=== PATIENT | male | born 1935 | race Caucasian/White ===

== ENCOUNTER 2016-06-22 09:38 | Inpatient (IN) | payer MEDICARE, OTHER ==
[~2016-06-22] VITALS: Ht 167.6 cm; Wt 77.2 kg
--- NOTE | ~2016-06-22 | HP ---
PATIENT'S NAME: HALLIE LOMAS [facility] AGE: 80 Y [address] ROOM: [place] [address] LOCATION: [facility] ADMIT DATE: 06/22/2016 History & Physical DISCHARGE DATE: FAMILY PHYSICIAN: Nick Fontenot MD ATTENDING PHYSICIAN: Teddy Leggett DATE OF SERVICE: HISTORY OF PRESENT ILLNESS: This 80-year-old gentleman is admitted to rehab unit at [facility] on 06/22/2016 for continuous medical treatment and intensive rehabilitation. 1. Unstable gait. 2. Dependent activities and self-care. 3. Status post bilateral subdural hemorrhage, chronic, evacuated on 06/14/2016 with complaint of repeated falling and confusion originally. 4. He was admitted for intensive rehabilitation and continuous medical treatment for about 2-3 weeks, aiming to discharge home at the [facility] with recommendation and followup on outpatient basis. 5. He is at the present time alert, slightly confused. 6. Vitals are as follows. Blood pressure 146/80, temperature 98.0, pulse 91, respiration rate 20. He is 5 feet 9 inches tall and weighs 86.0 kg. ALLERGIES: HE IS ALLERGIC TO ACETAMINOPHEN, PHENYLEPHRINE, AND STATINS (?). PAST HISTORY: At the present time, and his past history is as follows: 1. Paroxysmal atrial fibrillation, on and off, per history. 2. Hypertension. 3. Hypothyroid. 4. Status post thyroid cancer, status post thyroidectomy. 5. Previous CVA in 2004 and recovered well. 6. Dementia. 7. Depression. 8. Colon surgery, exact surgery unknown. 9. History of PIP pain of long finger secondary to arthritis on the left side and was injected on 06/17/2016 and followed by Ortho. 10. He is at the present time, weightbearing as tolerated. HEAD: Normocephalic otherwise. NEURO: Cranial nerves 2 through 12 are within normal limits except he is a little bit slow and sometimes a little bit needs cues with some slight confusion still. Cranial nerves 2 through 12 are within normal limits. At the present time, he [facility] AGE: 80 Y [address] ROOM: [place] [address] LOCATION: [facility] ADMIT DATE: 06/22/2016 History & Physical DISCHARGE DATE: FAMILY PHYSICIAN: Nick Fontenot MD ATTENDING PHYSICIAN: Teddy Leggett is requiring assistance for stability to stand and walk up to 50 feet. NECK: Supple. Trachea is central. CHEST: Moving equally and regular. Few scattered basilar wheezes. HEART: On and off regular. ABDOMEN: Soft. No organomegaly or tenderness. Bowel sounds active. EXTREMITIES: Bilateral upper and lower extremity present. Muscle strength throughout is about 4-/5 bilateral upper and lower extremity. : He is continent of his bowel and bladder so far. Bladder has some issues of on and off being incontinent secondary to previous CVA. He can swallow without difficulty. Voice is clear and not wet. We will put on a cardiac prudent diet. Mechanical soft. We will send for UA with reflex microscopy. CBC with automated differential, CMS, and prealbumin. We will put him on intensive PT, OT, and Speech 3 hours per day, 15 hours per week for the coming about 3 weeks, aiming to discharge on modified independence. We will keep on Dr. Deluna, hospitalist doctor, and Dr. Travis to follow as necessary. All the above was explained to him in detail. He verbalized understanding and agreement with plan of care. TEDDY LEGGETT MD WMS/modl /[id number] D: 049 T: HISTORY & PHYSICAL
--- NOTE | ~2016-06-22 | DS ---
PATIENT'S NAME: HALLIE LOMAS [facility] AGE: 80 Y [address] ROOM: [place] [address] LOCATION: [facility] ADMIT DATE: 06/22/2016 Discharge Summary DISCHARGE DATE: 07/15/2016 FAMILY PHYSICIAN: Nick Fontenot MD ATTENDING PHYSICIAN: Teddy Santillan This 80-year-old gentleman was admitted to rehab unit at [facility] on 06/22/2016 and is discharged on 07/15/2016. He was with unstable gait, dependent activities of daily and self-care, confused, status post bilateral subdural hematoma, chronic, evacuated on 06/14/2016, details on record. He was admitted for intensive therapy and continuous rehabilitation on intensive care rehab unit at [facility]. At this time, he is alert, oriented, feels well. On and off, he gets confused and can be redirected. He is at some times impulsive and at risk of falling. It has been stressed repeatedly that he needs to be watched for safety at all time and family is well aware of that. At the present time, he is alert, able to follow instructions. Vitals: Blood pressure 134/82, temperature 97.9, pulse 89, and respiration rate 17. His CMS today; sodium 140, potassium 4.2, chloride 104, CO2 29, BUN 13, creatinine 0.8, and glucose 105. His prealbumin is 26.0. He can ambulate 300 feet x1 and 150 x1 with a walker and for stability hands- on. He should always be supervised for safety. He can and is at risk of falling. He is to follow with me in 3 weeks and I have given him a home health, PT, OT, speech, and aide 3 times per week for the coming 3 weeks. I did [id number] encounter on 07/14/2016, details on record. PATIENT'S NAME: HALLIE LOMAS [facility] AGE: 80 Y [address] ROOM: [place] [address] LOCATION: [facility] ADMIT DATE: 06/22/2016 Discharge Summary DISCHARGE DATE: 07/15/2016 FAMILY PHYSICIAN: Nick Fontenot MD ATTENDING PHYSICIAN: Teddy Santillan Follow up with Dr. Deluna as Dr. Deluna sees fit. He must follow with his family physician as soon as possible. Medications as per discharge summary and any renewal and addition per his family physician. He is at the present time not to drive and/or operate any mechanical or electrical device until he is re-evaluated. He is on the following medications: 1. Tylenol Extra Strength 1000 mg p.o. twice daily, give 36 of them, do not exceed acetaminophen 4 g q.24 hours. 2. Celebrex 200 mg p.o. daily. 3. Celexa 20 mg p.o. in the morning. 4. Cardizem CD 240 mg. 5. Aricept 10 mg p.o. at bedtime. 6. Keppra 500 mg p.o. twice daily. 7. Levothroid 75 mcg p.o. daily. 8. Theragran-M 1 tablet p.o. daily. 9. Cozaar 25 mg at bedtime. 10. Flomax 0.4 mg at bedtime. FINAL DIAGNOSES: 1. Unstable gait. 2. Dependent activities of daily and self-care with confusion and at times impulsive. 3. Status post bilateral subdural hematoma, chronic, evacuated on 06/14/2016. 4. History of paroxysmal atrial fibrillation. 5. Status post colon surgery per history. 6. Dementia and depression(?). 7. Hypertension. 8. History of cerebrovascular accident in 2004 and recovered well. 9. Hypothyroidism, status post thyroidectomy, carcinoma of the thyroid per history. 10. Osteoarthritis. 11. Benign prostatic hypertrophy. 12. Impulsive and on and off confused, needs to be supervised for safety at all times. He should not drive and/or operate any mechanical or electrical device until he is re-evaluated. He should follow with his family physician as soon as possible. Any renewal of medication and/or change of medication with his family physician. PATIENT'S NAME: HALLIE LOMAS [facility] AGE: 80 Y [address] ROOM: [id number] [place] [id number] LOCATION: [facility] ADMIT DATE: 06/22/2016 Discharge Summary DISCHARGE DATE: 07/15/2016 FAMILY PHYSICIAN: Nick Fontenot MD ATTENDING PHYSICIAN: Teddy Santillan All the above was explained to him and his family, they verbalized understanding and agreement with plan of care. MD APOLINAR YODER/jamison /[id number] d: 07/15/16 0246 t: 07/15/16 0811, DISCHARGE SUMMARY
--- NOTE | ~2016-06-22 | CON ---
PATIENT'S NAME: HALLIE LOMAS [facility] AGE: 80 Y [address] ROOM: [id number] [place], [place] [address] LOCATION: [facility] ADMIT DATE: 06/22/2016 Consultation DISCHARGE DATE: 07/15/2016 FAMILY PHYSICIAN: Nick Fontenot MD ATTENDING PHYSICIAN: Teddy Leggett DATE OF CONSULTATION: 07/08/2016 REFERRING PHYSICIAN: Germaine Deluna MD Team members reporting include: Dr. Leggett; Rianna Teran, social media marketing analyst; Suma Tong, RN; Tiffany Davis, PT; Adrianna Titus, PT; Loulou Cornelius, OT; Nhi Bocanegra, Speech Therapy; Mare Naylor, therapeutic rec; Sister Cecilia Lloyd, Pastoral Care; and sal Norman, pharmacist. CURRENT STATUS: Jan Oconnor is an 80-year-old man, admitted to our inpatient rehab unit on June 22, 2015, following subdural hematoma with bilateral deanna holes. The patient is currently incontinent of bladder at times. He does have scabs on his head that are healing. Takes Extra Strength Tylenol for pain. The patient is on a cardiac diet. Prealbumin is 27. Taking Ensure Enlive b.i.d. The patient can transfer sit to supine and supine to sit independently; he can transfer sit to stand and stand to sit, standby assistance; bed to chair and chair to bed, standby; he can walk 300 feet with a front-wheeled walker at standby assistance; and he can climb 12 stairs with 2 railings at contact guard assistance to standby assistance. The patient's [place] balance test was 45/56. He can dress his upper and lower body at standby; grooming and bathing, standby; toilet and shower transfers, contact guard assistance; and toileting, contact guard assistance. The patient can feed himself at standby. He has met 3/3 short-term OT goals. Comprehension, language, and expression are at modified independence; memory, minimal assistance; and problem solving, standby. The patient can complete car transfers at contact guard assistance to minimal assistance with lots of cues for safety. The patient voices that he is nervous about leaving our facility. The patient has been very open to pastoral care. Pharmacy did question when the patient was going to be started back on Lovenox, hospitalists will put in recommendation. DISCHARGE PLAN: The patient is receiving 3 hours of PT, OT, and speech Thursday through Thursday. The patient has daily rehab, nursing, and Physiatry involvement as well as therapeutic recreational services 4 days per week. The patient has shown functional improvement and is progressing. Please see his plan of care for specific goals. Plan is for the patient to discharge in approximately 1 week. Plan is for the patient to discharge back to [facility] in [place], [place]. PATIENT'S NAME: HALLIE LOMAS [facility] AGE: 80 Y [address] ROOM: [place] [address] LOCATION: [facility] ADMIT DATE: 06/22/2016 Consultation DISCHARGE DATE: 07/15/2016 FAMILY PHYSICIAN: Nick Fontenot MD ATTENDING PHYSICIAN: Teddy Leggett RIANNA TERAN FOR TEDDY LEGGETT MD TD/modl /[id number] d: t: 07/16/16 1803, CONSULTATION REPORT
--- NOTE | ~2016-06-22 | CON ---
PATIENT'S NAME: HALLIE LOMAS [facility] AGE: 80 Y [address] ROOM: [address] [place], [place] [address] LOCATION: [facility] ADMIT DATE: 06/22/2016 Consultation DISCHARGE DATE: FAMILY PHYSICIAN: Nick Fontenot MD ATTENDING PHYSICIAN: Teddy Leggett DATE OF CONSULTATION: 06/24/2016 REFERRING PHYSICIAN: Germaine Deluna MD Team members reporting include Dr. Leggett; Rianna Teran, social media director; Suma Tong RN; Tiffany Davis, PT; Vibha Cartwright, OT; Nhi Bocanegra, Speech Therapy; Mare Naylor, therapeutic rec; Sister Cecilia Lloyd, Pastoral Care; and Brynn Norman, pharmacist. CURRENT STATUS: Hallie is an 80-year-old man, who came into our inpatient rehab unit on June 22, 2016. The patient had subdural hematoma and had a bilateral deanna hole surgery. The patient had fallen in his bathroom about a week ago. The patient has a history of depression, hypertension, and a stroke in 2004. The patient is incontinent occasionally of bowel. Has a Prakash catheter. The patient's bottom is red. He is on a cardiac mechanical soft diet. He can transfer sit to supine and supine to sit, minimal assistance; sit to stand and stand to sit, minimal assistance. He can walk 15 to 20 feet with a front- wheeled walker at contact guard assistance. His goals have been set for modified independent for transfers, standby assistance for stairs and gait. The patient is having difficulty with staying awake during therapy. He can dress his upper body at minimal assistance; lower body, dependent; grooming, standby; bathing, minimal assistance; toilet and shower transfers, minimal assistance; dependent for toileting; and standby assistance for feeding. His goals for OT have been set for standby assistance. Dr. Leggett did reorder a CT scan to check due to the patient's sleepiness. The patient's comprehension is independent; language and expression, mod I; memory, minimal to moderate assistance; and problem solving, minimal assistance. The patient's swallowing is currently at standby. The patient did have an initial therapeutic rec evaluation. He has been very open to pastoral care and uatsdin. No pharmacy concerns. DISCHARGE PLAN: The patient is receiving 3 hours of PT, OT, and Speech Thursday through Thursday. The patient has daily rehab, nursing, and physiatry involvement as well as therapeutic recreational services 4 days per week. The patient has shown functional improvement and is progressing. Please see his plan of care for specific goals. Plan is for the patient to discharge in approximately 4 weeks. The patient was living alone in his own apartment. PATIENT'S NAME: HALLIE LOMAS [facility] AGE: 80 Y [address] ROOM: [address] [place] [id number] LOCATION: [facility] ADMIT DATE: 06/22/2016 Consultation DISCHARGE DATE: FAMILY PHYSICIAN: Nick Fontenot MD ATTENDING PHYSICIAN: Teddy Leggett RIANNA TERAN FOR TEDDY LEGGETT MD TD/modl /[id number] d: 06/27/16 1750 t: 07/17/16 1112, CONSULTATION REPORT
--- NOTE | ~2016-06-22 | CON ---
PATIENT'S NAME: HALLIE LOMAS [facility] AGE: 80 Y [address] ROOM: [id number] [place], [place] [address] LOCATION: [facility] ADMIT DATE: 06/22/2016 Consultation DISCHARGE DATE: 07/15/2016 FAMILY PHYSICIAN: Nick Fontenot MD ATTENDING PHYSICIAN: Teddy Leggett DATE OF CONSULTATION: 07/02/2016 REFERRING PHYSICIAN: Germaine Deluna MD Team members reporting include Dr. Leggett; Rianna Teran, social work lecturer; Suma Das, RN; Tiffany Davis, PT; Adrianna Demarco, PT; Loulou Cornelius, OT; Nhi Bocanegra, Speech Therapy; Mare Naylor, therapeutic rec; Sister Cecilia Lloyd, Pastoral Care. CURRENT STATUS: Hallie is an 80-year-old man admitted to our inpatient rehab unit on June 22, 2016, following a subdural hematoma, with bilateral bur holes on June 14, 2016. The patient has a history of atrial fibrillation, dementia, depression, hypertension, CVA in 2004, hypothyroidism, osteoarthritis, and benign prostatic hypertrophy. The patient is currently continent of bowel and bladder. He has 4 surgical areas on the top of his head. We continue to follow. He takes [place] for pain. The patient does have some redness on his bottom, but no open areas. He is on a cardiac diet. Intake is good. Taking Ensure Enlive t.i.d. prealbumin is 26. The patient can transfer sit to supine and supine to sit at standby; sit to stand, contact guard assistance. He is able to walk 150 feet with a front-wheeled walker at contact guard assistance to standby assistance. He is having some spasticity in his left leg from the previous stroke. He has met 4/9 short-term PT goals. The patient can dress his upper body at standby; lower body, contact guard assistance; bathing, standby; toilet and shower transfers, contact guard assistance; toileting, contact guard assistance; and feeding, standby. He has met 2/3 short-term OT goals. The patient's comprehension, language, and expression are at mod I; memory, moderate to minimal assistance; and problem solving, minimal to standby assistance. We did visit with the patient about having Psychiatry see him. The patient refused. The patient has been very open to pastoral care. DISCHARGE PLAN: The patient is receiving 3 hours of PT, OT, and speech Thursday through Thursday. The patient has daily rehab, nursing, and physiatry involvement as well as therapeutic recreational services 4 days per week. The patient has shown functional improvement and is progressing. Please see his plan of care for specific goals. Plan is for the patient to discharge in approximately 2 weeks. The patient would like to return to his apartment at [facility] in [place], [place]. PATIENT'S NAME: HALLIE LOMAS [facility] AGE: 80 Y [address] ROOM: [place] [address] LOCATION: [facility] ADMIT DATE: 06/22/2016 Consultation DISCHARGE DATE: 07/15/2016 FAMILY PHYSICIAN: Nick Fontenot MD ATTENDING PHYSICIAN: Teddy Leggett RIANNA TERAN FOR TEDDY LEGGETT MD TD/modl /[id number] d: t: 07/16/16 1801, CONSULTATION REPORT
[~2016-06-22 09:38] MED LIST: ALEVE220 MG PO; ARICEPT10 MG PO; ASPIRIN LO-DOSE81 MG PO; COZAAR25 MG PO; LEVOTHROID(SYN75 MCG PO; REMERON 30 MG30 MG PO; THERAGRAN-M1 TAB PO; VITAMIN B-650 M1 PO; ZOLOFT100 MG PO
--- NOTE | 2016-06-22 14:26 | NUR ---
PATIENT ADMITTED FROM [facility] TO [facility] DUE TO FREQUENT FALLS RESULTING IN BILATERAL SUBDURAL HEMATOMAS WHICH WERE EVACUATED WITH BRITTNY HOLES. INCISIONSTO BILATERAL SIDES OF HEAD ARE INTACT. SUTURES AND [address] LACERATION TO LEFT POINTER FINGER HAS 7 SUTURES, EDGES APPROXIMATED. SCAB TO LEFT ELBOW FROM FALL. RIGHT WRIST IV. VITALS STABLE ON ROOM AIR, USE O2 TO KEEP SATS ABOVE 90%. UP 2 ASSIST, WALKER, GAIT BELT. VERY UNSTEADY, MORE WEAK TO THE LEFT SIDE. CHRONIC NUMBNESS AND TINGLING TO FINGERS AND TOES. CARDIAC PRUDENT DIET WITH MECHANICAL SOFT CONSISTENCY. NO STRAWS. FORMER SMOKER. HISTORY OF STROKE, HTN, HYPOTHYROIDISM. HAD MIDDLE FINGER INJECTED LAST WEEK, STILL SWOLLEN. SZYMANSKI IN PLACE FOR RETENTION.
[2016-06-22 23:29] LABS: BILIRUBIN URINE NEGATIVE (NEGATIVE); BLOOD URINE 150 /UL (NEGATIVE); COLOR URINE YELLOW (YELLOW); GLUCOSE URINE NEGATIVE (NEGATIVE); KETONE URINE NEGATIVE (NEGATIVE); LEUKOCYTES URINE 25 /UL (NEGATIVE); NITRITE URINE NEGATIVE (NEGATIVE); PROTEIN URINE NEGATIVE (NEGATIVE); SPEC GRAVITY URINE 1.015 (1.003-1.035); TURBIDITY URINE CLEAR (CLEAR); UROBILINOGEN URINE 1 mg/dL (NORMAL)
[2016-06-22 23:38] LABS: AMORPHOUS URINE 1+ (NEGATIVE); BACTERIA URINE NEGATIVE (NEGATIVE); EPITHELIAL URINE 0-2 #/HPF (NEGATIVE)
--- NOTE | 2016-06-23 02:15 | NUR ---
Significant Event:PT ALERT HOWEVER IS CONFUSED AT TIMES. PLEASANT WITH STAFF AND CARES. DENIES PAIN WHEN ASKED. SUTURES/FABRICIO TO HEAD OPEN TO AIR WITH NO S/S OF INFECTION NOTED. PT UP WIHT 2 ASSIST GB WALKER.CAN BE UNSTEADY ON HIS FEET.HAS SOME DIZZINESS AT TIMES WITH CHANGE OF POSITION SZYMANSKI CATH IN PLACE AND PATENT,UA OBTAINED DURING THIS SHIFT. VSS. USES CALL LIGHT APPROP. TAKES MEDICATION WHOLE IN APPLESAUCE. PUPILS EQUAL REGULAR AND BRISK. HAD MODERATE BM. Follow up:
[2016-06-23 05:48] LABS: BASOPHIL # 0.1 K/uL (0.0-0.2); BASOPHIL % 0.5 %; EOSINOPHIL # 0.3 K/uL (0.0-0.5); EOSINOPHIL % 2.8 %; HEMATOCRIT 33.9 % (33.0-50.0); HEMOGLOBIN 11.4 g/dL (11.0-16.0); IMMATURE GRANULOCYTE % 0.4 %; LYMPHOCYTE # 1.1 K/uL (0.8-4.0); LYMPHOCYTE % 10.4 %; MCH 28.5 pg (27.0-34.0); MCHC 33.6 gm/dL (32.0-36.5); MCV 84.8 fl (83.0-98.0); MONOCYTE # 0.9 K/uL (0.0-1.0); MONOCYTE % 8.3 %; MPV 9.3 fl (9.4-12.4); NEUTROPHIL % 77.6 %; NRBC % 0 /100WBC (0-0.00); RDW-CV 13.2 % (11.9-14.6); WBC 10.4 K/uL (4.0-11.0)
[2016-06-23 05:51] LABS: PLATELET COUNT 301 K/uL (150-450)
[2016-06-23 06:10] LABS: ALBUMIN 2.8 gm/dL (3.5-5.0); ALK PHOS 99 IU/L (33-138); ALT 25 IU/L (12-78); AST 23 IU/L (10-40); BLOOD UREA NITROGEN 14 mg/dL (6-24); CALCIUM 8.2 mg/dL (8.5-10.5); CHLORIDE 103 mMol/L (96-110); CO2 27 mMol/L (22-32); CREATININE 0.8 mg/dL (0.6-1.3); ESTIMATED GFR (MDRD EQUATION) > 60; SODIUM 137 mMol/L (135-145); TOTAL BILIRUBIN 0.5 mg/dL (0.0-1.5); TOTAL PROTEIN 6.3 g/dL (6.0-8.4)
--- NOTE | 2016-06-23 09:00 | NUR ---
D: Therapeutic Recreation Initial Assessment on the 06/23/16. I: Patient seen for 2 units at [facility] to begin initial evaluation. Pt has dx of subdural hematoma with deanna holes. R: Patient's current living situation and status: apartment Home entrance steps: elevator Living with: alone Spouses name: divorce # of children: 5 (1 close by) Driving: no, family provides transportation Ambulating: mod I Equipment: walker Hand Dominance: L) Drill Operator Automatic strength: jess. weakness Eye sight: glasses Reading ability: N/T Hearing: no problem Speech: soft spoken Cognition: impaired Comprehension: fair Following directions: at times Initiating: yes Eye contact: fair Affect: flat COMMUNITY INVOLVEMENT: grocery shopping, out to eat, anabaptism every Thursday, visit family, coffee in a.m. at apartment LEISURE INTERESTS: watch TV (Prevacus), read Bible, past cards Patient is referred by medical staff for treatment and evaluation in the following areas: Community Skills, Functional Leisure Skills, Participation, Leisure Education/Behaviors, Family Education, Cognitive, Emotional. Information obtained: Interview, Chart Review, Observation, other. BARRIERS TO LEISURE: Social, Financial, Physical, Lifestyle (alcohol use and hx of depression (on meds) Transportation, Leisure Skills. Patient determined to be: APPROPRIATE FOR THERAPEUTIC RECREATION ASSESSMENT. TREATMENT WILL INCLUDE: Community living skills training Functional leisure development Physical skills development Cognitive skills development Social skills development Leisure education Emotional/behavioral adaptation Family education Community resources/packet TARGET EQUIPMENT/INFORMATION: Parking Permit to assess need Community Resources Energy conservation in community setting Van/Service/Taxi Scrip Adapted Leisure Equipment Stress management/Relaxation techniques Functional car transfers Leisure Education Behaviors: Attitude, Awareness, Participation. Patient functional skills level and potential: Guarded, pt demonstrates poor mobility with and confusion at times. Patient oriented ot TR services on Rehab unit. Pt/family provided input into goals setting and plan of care. Pt unable to list. P: Target date set with personal goals established. Will continue with POC focusing on pt/family training and education. For additional information please see Nursing Data Base, PT, OT, CM, ST, initial assessments to [facility] and Interdisciplinary Assessments.
--- NOTE | 2016-06-23 13:19 | NUR ---
Patient is alert and oriented, VSS, on room air. Up with 1-2 assist, walker and GB, will become unsteady on his feet, needs cues to stand tall and to use his legs. Has deanna holes in his head with sutures and a few alicia. Takes his pills in applesauce well, mechanical soft diet. Prakash is patent. Had a large BM this shift. IV to R) wrist is saline locked. He made a comment about having music to sleep at night so a radio was placed in his room with headphones.
--- NOTE | 2016-06-24 04:28 | NUR ---
Significant Event: A&Ox3, VSS on room air. Max oral temp 99.9 at HS, rechecked through out shift X2 with no further concern. Patient stated he "didn't feel well" stating he "hurt all over". Scheduled tylenol given at HS. [place] given at 0 for unresolved pain. Patient became slightly agitated and restless at 2150, stating he "can't sleep" and to "knock me in the head and get it over with". Modified environment with music and aromatherapy. Patient continued to appear frustrated and restless. PRN PO Haldol, 0.5mg, given at 0. Patient rested well rest of shift. Repositioned self in bed. Prakash patent. [place] holes open to air. Loose BMs X2. Transfers with 1-2PA, walker/GB. Follow up:
--- NOTE | 2016-06-24 13:49 | NUR ---
Significant Event: PT DOESNT FEEL VERY WELL TODAY. HAS HAD SEVERAL LOOSE BM'S, WATERY, STATED HE FEELS DOWN TODAY. TRANSFERS WITH 1 ASSIST TO THE BATHROOM AND IN THE BED. USES WHEELCHAIR FOR TRANSFERS. STICHES ON HEAD INTACT. SLIGHT DRAINAGE ON THE PILLOWCASE THIS AM. SZYMANSKI CATH INTACT. HELD ALL STOOL MEDS. NO TEMP THIS SHIFT. MEDS IN APPLESAUCE. Follow up:
--- NOTE | 2016-06-24 16:27 | NUR ---
D: TR progress note for 06/24/16. I: Pt seen for 2 units at 1032 for cognitive thinking, sequencing concentration and coping skills. R: Pt seen for functional skills building working on concentration, sequencing and coping skills doing cognitive thinking exercise to promote recovery with memory and for coping. Pt seen at bedside due to C/o fatigue and illness able to complete problem solving trivia task doing cliche exercise with min > SBA cues. Pt needed cues to remain on task due to tangent comments but demonstrated good eye contact and sense of humor at times. P: Will continue to see to address goals and plan of care.
--- NOTE | 2016-06-25 03:51 | NUR ---
Significant Event: A&Ox3, VSS on room air. Patient states he is depressed. Loose stools negative for C-DIFF. Transfers with 1Pa, walker/GB to bathroom. Takes meds whole in applesauce. [place] given for pain X2 last at 0100. IV discontinued. Sutures and alicia to head intact and open to air, no drainage. Follow up:
--- NOTE | 2016-06-25 14:39 | NUR ---
Significant Event: Alert and oriented x 3. Denies pain. Up with 1A walker and gait belt. Takes meds whole with applesauce. Sutures and alicia to head intact. Uses call light appropriately. Seems to be depressed. Participated in all therapies. Follow up:
--- NOTE | 2016-06-26 03:18 | NUR ---
Significant Event: Patient is alert and sometimes confused. Speech is slow. Up one assist with GB/Walker. Sutures and alicia to both side of his head intact no redness noted. Uses call light as needed. C/O early that he cant sleep but did seem to sleep most of the night. Was asking for something to help him sleep. Prakash in place drains. [place] last given at bedtime. Follow up: Call MD if temp > 100.5.
--- NOTE | 2016-06-26 11:57 | NUR ---
[facility] Case Management Prefunctioning and Psycho-Social Initial Assessment for 06/22/16 and Case Conference Note for 06/24/16 D: Initial Certified Hyperbaric TechnologistEducational Aid and Case Conference Note. I: Input from: patient, family, Dr. Del Rosario, Dr. Santillan, Gretel Hernandez hospice clinical manager, and Rianna BALTAZARW R: Reason for admission: bilateral subdural hematomas status post deanna holes. Admission Date to [facility]: 06/22/16 Admission Date to Hospital: 06/13/16 Prior level of functioning: patient lives alone. Uses 4 wheeled walker at baseline. Independent with adl's and household. Prior living situation: apartment 11th floor. Financial resources/expectations: patient has Medicare and [place] [employer]. Resources used: 4 wheeled walker. Resources available: HHC, outpatient therapy, SNF, [facility], [facility], DME. Family support available: daughters Understands nature of health condition: no Recognizes impact of health condition on lifestyle: no; not at this time. Vocational/Educational: retired Behavior/Emotional needs: cues for safety. Monitor for signs and symptoms of depression and anxiety. Legal concerns: none. Discharge goal: home with support. Assessment: Elvin is an 80 year old man from [place], [place]. He currently lives alone in his own apartment. He has good family support. Patient's goal is to return to home when able. Team conference was held on 06/14/16 and plan is d/c in approx. 4 weeks. Will follow and assist as needed. Orientation to the program and CM services completed with Elvin. Initial plan of care and estimated length of stay discussed, disclosure statement reviewed including patient assessment rights. P: Target date and individual goals established. Please see POC for details. For additional information please see Nursing Data Base, PT, OT, TR, ST, Initial assessments to [facility].
--- NOTE | 2016-06-26 14:24 | NUR ---
Significant Event: PATIENT UP 1 ASSIST, WALKER, GAIT BELT. SZYMANSKI INTACT. CONTINENT OF BM. VERY TIRED BETWEEN THERAPIES TODAY. VITALS STABLE ON ROOM AIR. ALERT AND ORIENTED BUT FORGETFUL, ALARMS AT ALL TIMES. REMOVED SUTURES AND FABRICIO FROM HEAD, WILL LIKELY REMOVE THE ONES IN HIS THUMB SINCE THEY ARE ALREADY FALLING OUT. DENIES PAIN. Follow up:
--- NOTE | 2016-06-27 02:59 | NUR ---
Significant Event: Patient alert and oriented, VSS. Up one assist with GB/Walker. Gait is slow. Is very tired all the time and c/o he does not sleep but appears to be sleeping when checked on hourly rounds. Is given his scheduled Tylenol and 1 [place] at bedtime. Prakash patent, patient does not like it asking when it can be removed. [place] and sutures removed from his head and his left thumb. One suture left in his left thumb. Coban placed around his left thumb patient c/o the skin is partially dehisced. Follow up:
--- NOTE | 2016-06-27 12:01 | NUR ---
A - PT SCREENED D/T LOS. HT: 66" WT: 186# BMI: 30.0 LABS: ALB 2.8, PREALB 13.0 MEDS: CELEXA, SYNTHROID, KEPPRA, ARICEPT, BOWEL DIET: CARDIAC. INTAKE: REF-100%, AVG ~50% ENSURE ENLIVE TID NEEDS: 5485-3873 KCAL (15-20 KCAL/KG), 85-102 G PRO (1-1.2 G/KG), 2125 ML FLUID (25 ML/KG) D - INADEQUATE NUTRIENT INTAKE AT TIMES R/T DECREASED APPETITE AEB INTAKE RECORD. I - GOAL FOR INTAKE 50-75% BY NEXT ASSESSMENT. WILL CONTINUE ENSURE ENLIVE TID. M/E - WILL MONITOR INTAKE F/U IN 4-6 DAYS.
--- NOTE | 2016-06-27 14:07 | NUR ---
Significant Event: PATIENT UP 1 ASSIST, WALKER, GAIT BELT. ORIENTED TO PERSON AND PLACE BUT OFTEN MAKES CONFUSED STATEMENTS. TODAY HE CALLED THE WALKER A "WRISTWATCH". SZYMANSKI INTACT. PILLS IN APPLESAUCE. VITALS STABLE ON ROOM AIR. 1 SUTURE LEFT TO LEFT THUMB, WRAPPED IN COBAN BECAUSE THE DRY SKIN IS PEELING. ALL SUTURES AND FABRICIO REMOVED TO HEAD. PATIENT OCCASIONALLY HAS HEADACHE. RECEIVES SCHEDULED TYLENOL. Follow up:
--- NOTE | 2016-06-28 03:55 | NUR ---
Significant Event:Up with one assist/walker, hands on for stability while moving slowly. Talkative with staff. Refused supper but did eat fruit/cheese around midnight and stated was hungry/tasted good. Healing, scabbed incisions to bilat sides of head--slightly edematous/reddened. Gauze drsg/coban to left thumb area, drsg dry and remains intact--was reported by prior shift that one suture remains, drsg applied so pt wouldn't pick at loose skin/suture area over laceration. Gave Extra strength tylenol at 2036 as scheduled, rated frontal headache at 1 that was dull/aching. No loose stools tonight, had bm on day shift yest. 400 ml in; 575 out via danielson. No straws. Left grasp slightly weaker, leans slightly. Able to make needs known. Follow up:No straws. Call if temp > 100.5--CT of head on Thursday, call Obasi when completed.
--- NOTE | 2016-06-28 10:44 | NUR ---
PT BROUGHT OUT TO DINING ROOM SAT @ THE TABLE WATCHED TV, VISITED WITH STAFF, AND WORKED ON A PUZZLE FOR DIVERSIONAL ACTIVITY. PT VERY TALKATIVE, AND MOVES ON FROM ONE SUBJECT TO ANOTHER WITHOUT A PAUSE.
--- NOTE | 2016-06-28 10:46 | NUR ---
Significant Event:Pt continues to be alert and orientated to person and place, continues to make occasional inchoherent remarks that are not pertinent to conversation. Up with 1 assist and walker/gait belt. Prakash patent and intact. Incisons dry and intact, reports only have 1 stitch left in his left thumb, which has a dressing on for protection. Pt very talkative and moves quickly from 1 subject to the next. Not to use any straws. likes meds with applesauce, takes whole. Left hand grasp slightly weaker , and can lean to the left slightly. Expresses needs well. Pt has been pleasant and cooperative with staff. Follow up:Call if temp >100.5. Pain control, CT of head on Thursday, call Obasi when completed.
--- NOTE | 2016-06-29 05:29 | NUR ---
Alert and oriented but forgetful. Up with one assist and walker. Takes meds whole in applesauce. C/O achiness to both legs. Last [place] given at 0150. Prakash patent with now clear yellow urine. Slept well.
--- NOTE | 2016-06-29 12:45 | NUR ---
Significant Event:Pt up with 1 assist, to wheel chair, ate in dining room this am. Prakash patent with clear yellow urine. Continues to alert and orientated to person and place, with occasional incoherent remarks that are not pertinent to conversation. No changes in left thumb, with remaining 1 stitch. Takes meds whole, with applesauce. ASsessment unchanged from previous day. Pt has been pleasant and cooperative with staff. Encourage fluids. Follow up:Not to use any straws. pain control, call if temp >100.5. CT of head on Thursday with call Dr Deluna when completed.
--- NOTE | 2016-06-30 03:21 | NUR ---
A/O x 3. Pleasant. Cooperative. OOB in recliner for dinner. OOB to BR x 5 by midnight. Ambulates with walker , 1-assist. Rested well after 0130.
[2016-06-30 06:06] LABS: ALBUMIN 3.1 gm/dL (3.5-5.0); ALK PHOS 110 IU/L (33-138); ALT 22 IU/L (12-78); ANION GAP 12.2 (10.0-19.0); AST 18 IU/L (10-40); BLOOD UREA NITROGEN 15 mg/dL (6-24); CALCIUM 8.6 mg/dL (8.5-10.5); CHLORIDE 103 mMol/L (96-110); CO2 28 mMol/L (22-32); CREATININE 0.8 mg/dL (0.6-1.3); ESTIMATED GFR (MDRD EQUATION) > 60; POTASSIUM 4.2 mMol/L (3.7-5.1); SODIUM 139 mMol/L (135-145); TOTAL BILIRUBIN 0.4 mg/dL (0.0-1.5); TOTAL PROTEIN 6.2 g/dL (6.0-8.4)
--- NOTE | 2016-06-30 14:28 | NUR ---
Significant Event: PATIENT UP 1 ASSIST, WALKER, GAIT BELT. ALERT AND ORIENTED X3. FORGETFUL AT TIMES AND FIXATES ON SMALL DETAILS. DENIES PAIN. INCISIONS TO TOP OF HEAD INTACT. 1 SUTURE TO LEFT THUMB INTACT, WRAPPED IN COBAN.VITALS STABLE ON ROOM AIR. SZYMANSKI INTACT BUT PATIENT TUGS AT IT OFTEN, PINK TINGED URINE AT TIMES. FEEDS SELF WELL. APPLESAUCE FOR PILLS. Follow up:
--- NOTE | 2016-07-01 03:01 | NUR ---
Significant Event: Patient alert and oriented x3. Can be forgetful at times and repeats statements. Up with one assist and walker, slow. Prakash draining dark yellow to tu urine. Had a small bowel movement. Scabbed areas to head, left frontal one draining very small amnt of serosanginous drainage. Suture and scabbed area to left thumb. Received scheduled tylenol and norco given at 0240 for bilateral leg pain. Haldol given with hs meds. Patient has slept between periods of getting up. States he won't participate in speech therapy "if he has anything to say about it" due to stated frustration with therapist? Uses call light appropriately. Pleasant and cooperative with cares Follow up:
--- NOTE | 2016-07-01 10:36 | NUR ---
A-NUTRITION F/U FORGETFUL AT TIMES. INCISIONS TO TOP OF HEAD SCABBED CBW 78.3 KG (STANDING SCALE); ADMIT WT OF 84.3 KG WAS A WHEELCHAIR SCALE. LABS: NA 139, K+ 4.2, GLU 99, BUN 15, HVAC SERVICES PROFESSIONAL 0.8, ALB 3.1, PREALB 26.0. PREALB UP FROM 13.0 ON 06/23 MEDS: IMMODIUM. (+)BM DIET RX: CARDIAC W/ENSURE ENLIVE TID. PO INTAKE HAS BEEN 50-100% SINCE LAST F/U. GOAL WAS 50-75%. EST NUTR NEEDS: 3626-7357 KCALS AND 85-102 GM PROTEIN D-NUTRITION PROBLEM RESOLVED; PT NO LONGER AT NUTRITION RISK; NO NUTRITION DX IDENTIFIED. I-CONTINUE W/ENSURE ENLIVE TID TO MAINTAIN NUTRITION STATUS M/E-GOAL: PO INTAKE 50-100% FOR DURATION OF ADMIT 1)F/U PO INTAKE, LABS, WT, AND POC IN 6-8 DAYS 2)ASSIST NEEDED
--- NOTE | 2016-07-01 11:24 | NUR ---
Significant Event: Patient alert and oriented. Up with 1 assist. Some left sided weakness. Prakash intact. [place] holes to head are scabbed. No straws. Taking [place] for pain. Follow up:
--- NOTE | 2016-07-01 15:54 | NUR ---
D: TR progress note for 07/01/16. I: Pt seen for 2 units at 900 cognitive thinking task, fine motor skills, coping skills and functional transfers. R: Pt seen for functional skills building working on cognitive thinking skills, visual scanning, coordination and fine motor skills using card to promote recovery and increase independence in all areas. Pt completed sorting in suits with 100% accuracy and could complete numerical task cortes-simran utilizing BUE with extra time allotted SBA. Pt demonstrated fair fine motor skills but independent with scanning and attention to task. Pt completed matching pattern sheet 04/07 and completed sequence task doing with again 100% accuracy but needed extra time. Education done utilization of leisure to promote recovery as pt verbalized enjoyment of cards prior to hospitalization. Pt transferred sit > stand from CGA, ambulated with walker 6 feet to recliner CGA and transferred into CGA with good recall on hand placement. P: Will continue to see to address goals and plan of care.
--- NOTE | 2016-07-02 04:39 | NUR ---
Significant Event: Afebrile, transfers with one assist/walker--moves slowly and stops when talking with staff. Prakash with tu urine, initially had brown sediment but now is cloudy yellow. Takes meds whole with applesauce. Had scheduled tylenol at hs, Haldol 0.5 mg given at 2042 for restlessness/anxiety as per his statement, Norcol given at 0100 for aching/sore bilat legs rated at 8. States frontal dull headache is a 2. Bilat deanna holes with dark scabs, slight red/edema with anterior left one with scant serosanginous drainage from scab that was dislodged from area. Has one suture to left thumb laceration, dry skin/healing. No use of straws. Last bm on , po 740 ml, output 1125 ml. Left elbow with small scab, also has an area where scab was picked up--area bright pink but without drainage, applied aloevesta cream and bandaid to area. Follow up: States is agreeable to seeing a pyschiatrist (no order for a consult, unsure if this was something that had been previously discussed with pt) Call if temp > 100.5. Monitor area to left anterior deanna hole for drainage.
--- NOTE | 2016-07-02 11:40 | NUR ---
D: TR progress note for 07/02/16. I: Pt seen for 2 units at 1100 in group session for education on pain/stress management, coping strategies, group participation and leisure education. R: Pt seen for functional skills building working on stress management, relaxation and education on signs and symptoms of depression to promote recovery. Pt actively participated in session, completed functional social communication skills independently which involved personal introduction of self and hometown. Education completed by verbal discussion on the physical stress/pain can cause the body and how it affects healing along with identification of coping strategies, relaxation techniques, and options available. Pt left early due to visit with Physician's visit. P: Will continue to see to address goals and plan of care.
--- NOTE | 2016-07-02 13:32 | NUR ---
Significant Event: PATIENT UP 1 ASSIST, WALKER, GAIT BELT. ALERT AND ORIENTED TO PERSON AND PLACE BUT GIVES CONFUSED STATEMENTS OFTEN. COOPERATIVE WITH CARES. SWALLOWS MEDS WITH APPLESAUCE. FEEDS SELF WELL. NORCO FOR PAIN GIVEN X1. INCISIONS TO HEAD ALL INTACT AND SCABBED. 1 SUTURE REMAINS TO LEFT THUMB, DRY SKIN FLAKING. SZYMANSKI INTACT. CONTINENT OF BOWELS. CALLS APPROPRIATELY. VITALS STABLE ON ROOM AIR. Follow up:
--- NOTE | 2016-07-03 04:00 | NUR ---
A/O x 3. Flat affect tonight. Distant behavior. OOB in recliner until 2029. Diarrhea episodes x 2. Medicated for pain at HS per patient request. Rested well. 1-assist walker/gait belt. Continent of Bowel. Prakash intact/patent.
--- NOTE | 2016-07-03 09:29 | NUR ---
D: Esthetician Permanent Makeup Artist Team Conference Follow up for 07/01/16 I: Input from patient/family R: Met with: patient, Dr. Santillan, Rianna Teran [facility]. Visited with daughters Mary and Maria Antonia per telephone calls. Discussed rehab plan, patient progress, discharge plan and estimated length of stay of d/c planned in approx. 2 weeks. Patient/Family Preference: patient and family are in agreement. Anticipated discharge disposition: back to apartment in [place]. Education completed: Education was completed with patient and family regarding length of stay, progress in therapy and d/c planning. Assessment/Recommendation: Team recommends 2 more weeks for patient. P: Case Coordination: Rocky is an 80 year old man from [place], [place] admitted after a fall with subdural hematoma status post evacuation. He has 5 daughters who assist him as needed. He lives in an apartment in [place] and was fairly independent other than daughter helping him get groceries. Will follow and assist as needed. Patient's goal is to return to home.
--- NOTE | 2016-07-03 14:23 | NUR ---
Significant Event: Alert and oriented x3. Patient up with 1A walker and gait belt. Unsteady at times. Takes scheduled tylenol. No PRN pain meds needed. Continent of bowel and bladder. Prakash intact and patent. Meds whole in applesauce. Uses call light appropriately. Cooperative with cares. Follow up:
--- NOTE | 2016-07-04 03:46 | NUR ---
Significant Event: Patient is alert and oriented. Was having repeditive thoughts, last evening getting worked up alittle. Given 1 mg of Haldol, was then able to rest for awhile. Up 1 assist with GB/Walker. Prakash patent, 575 mls out. Has been asking about having it removed. Was obsessed about it last night. Has been pleasant with staff and cooperative. Did have a liquid stool last night after drinking prune juice. Takes scheduled Tylenol for pain. Takes pills with applesauce. Follow up:
--- NOTE | 2016-07-04 10:25 | NUR ---
D: TR progress note for 07/04/16. I: Pt seen for 2 units at 855 for cognitive task, motor skills, sequencing, visual scanning, coping strategies and functional mobility. R: Pt seen for functional skills building working on sequencing, cognition task, motor skills, and coordination using playing cards to increase independence in all task and to promote recovery with motor skills. Pt completed card game 'jacks R wild' with min > occasional cues for game's strategy along with written cue instructions. Pt demonstrated fair motor skills and coordination utilizing BUE with fair math skills and sequencing. Education continued on utilization of leisure to promote recovery and for coping. Pt transferred sit > stand from SBA, ambulated 6 feet to recliner with walker CGA and transferred into chair SBA with good recall on hand placement. P: Will continue to see to address goals and plan of care.
--- NOTE | 2016-07-04 16:08 | NUR ---
Significant Event:PATIENT ALERT AND ORIENTED THIS SHIFT. DOES GET FORGETFUL AT TIMES. VSS. TRANSFERS WITH 1 ASSIST, GAIT BELT AND WALKER. SZYMANSKI PATENT DRAINING YELLOW URINE TODAY. NO SIGNS OF BLEEDING THIS SHIFT SO FAR. HAS DENIED PAIN TODAY. INCISIONS HEALING WELL. NO OTHER COMPLAINTS. RESTS IN RECLINER WHEN NOT IN THERAPY. Follow up:
--- NOTE | 2016-07-05 04:37 | NUR ---
Significant Event: Patient alert and oriented, can be forgetful at times. Keeps saying that he is anxious because his daughter is coming tomorrow and he worries about her. Transfers 1A gb/walker. Prakash patent, draing yellow urine, patient states he is peeing around the catheter and wants it out. Denies pain. Incisions to head healing with some scabs. Slept in the recliner off and on and went back to bed at 0345. Takes pills whole in applesauce. Cooperative with cares. Follow up:
--- NOTE | 2016-07-05 14:10 | NUR ---
AAOx3. Cooperative with cares. Up w/1assist, GB, walker w/slow, steady gait. Prakash pulled this a.m. Voided incontinent x1. Urinal at side. VSS, afebrile, on RA. Denies nausea, vomiting, stools loose from excessive prune juice. Tolerating cardiac diet well. No PRN meds given. No IV access. Daughter visiting today.
--- NOTE | 2016-07-06 04:31 | NUR ---
Patient alert and oriented. Transfers 1A GB/Walker. Prakash removed this am, been voiding well since. Has urinal at bedside. Can be forgetful at times and repeats self. Takes pills whole in applesauce. Denies pain. VSS. Cooperative with cares
--- NOTE | 2016-07-06 11:26 | NUR ---
Significant Event: PATIENT IS ALERT/ORIENTED X 3. WAS NOT HAPPY WHEN WAKING UP TODAY, BUT HAS BEEN LAUGHING AND JOKING WITH STAFF TODAY. HEART RATE WAS 60 TODAY, CALLED DR. GARCIA AND HELD [facility] ER. PATIENT HAS BEEN MOVING WELL, 1 ASSIST WITH TRANSFERS. INCONTINENT OF BLADDER AT TIMES. TAKES MEDS WHOLE IN APPLESAUCE. Follow up:
--- NOTE | 2016-07-07 04:08 | NUR ---
Patient alert and oriented. Transfers 1A GB/Walker. Went to bed early as had stated "it had been a long day", has slept well throught the night. Urinal at bedside. Takes pills whole in applesauce. Cooperative with cares.
[2016-07-07 06:00] LABS: BASOPHIL # 0.1 K/uL (0.0-0.2); BASOPHIL % 0.9 %; EOSINOPHIL # 0.3 K/uL (0.0-0.5); EOSINOPHIL % 2.7 %; HEMOGLOBIN 12.5 g/dL (11.0-16.0); IMMATURE GRANULOCYTE % 0.4 %; LYMPHOCYTE # 2.1 K/uL (0.8-4.0); LYMPHOCYTE % 22.5 %; MCH 28.3 pg (27.0-34.0); MCHC 32.9 gm/dL (32.0-36.5); MONOCYTE # 0.7 K/uL (0.0-1.0); MONOCYTE % 7.7 %; MPV 9.4 fl (9.4-12.4); NEUTROPHIL # (ANC) 6.1 K/uL (1.4-9.0); NEUTROPHIL % 65.8 %; NRBC % 0 /100WBC (0-0.00); PLATELET COUNT 276 K/uL (150-450); RBC 4.42 M/uL (3.50-5.50); RDW-CV 13.8 % (11.9-14.6); WBC 9.3 K/uL (4.0-11.0)
[2016-07-07 06:12] LABS: ALBUMIN 3.5 gm/dL (3.5-5.0); ALK PHOS 116 IU/L (33-138); ALT 18 IU/L (12-78); ANION GAP 8.1 (10.0-19.0); AST 12 IU/L (10-40); BLOOD UREA NITROGEN 24 mg/dL (6-24); CALCIUM 8.6 mg/dL (8.5-10.5); CHLORIDE 106 mMol/L (96-110); CO2 32 mMol/L (22-32); ESTIMATED GFR (MDRD EQUATION) > 60; POTASSIUM 4.1 mMol/L (3.7-5.1); SODIUM 142 mMol/L (135-145); TOTAL BILIRUBIN 0.4 mg/dL (0.0-1.5); TOTAL PROTEIN 6.8 g/dL (6.0-8.4)
--- NOTE | 2016-07-07 14:54 | NUR ---
A-NUTRITION F/U INCISIONS HEALING WELL. (+)BM. SOME LOOSE STOOLS D/T PRUNE JUICE PER CHART REVIEW. LABS (07/07): PREALB 27.0; UP FROM PREVIOUS 26.0 DIET RX: CARDIAC W/ENSURE ENLIVE TID. PO INTAKE 25-100%; AVG IS 61%. GOAL IS 50-100%. EST NUTR NEEDS: 7441-3111 KCALS AND 85-102 GM PROTEIN D-NOT AT NUTRITION RISK; NO NUTRITION DX IDENTIFIED I-DECREASE ENSURE ENLIVE FROM TID TO BID M/E-GOAL: PO INTAKE 50-100% FOR DURATION OF ADMIT 1)WILL ASSIST NEEDED
--- NOTE | 2016-07-07 15:34 | NUR ---
Significant Event:PATIENT ALERT AND ORIENTED THIS SHIFT. VSS. TRANSFERS WITH 1 ASSIST, GAIT BELT AND WALKER. IS A LITTLE UNSTEADY AT TIMES. IS OBSESSIVE AT TIMES AND REPETITIVE A LOT IN HIS WORDS. REPORTS CONTINUAL HEADACHE IN HIS FRONTAL AREA BUT ONLY AT A DULL ACHE AND CONSTANT. HAS DENIED NEED FOR ANY PAIN MEDS. UP IN RECLINER BETWEEN THERAPIES. NO OTHER COMPLAINTS. Follow up:
--- NOTE | 2016-07-08 03:55 | NUR ---
Significant Event: alert and oriented x3. repetitive thoughts and conversations. Up with one assist and walker. Had 2 bowel movements and was continent of urine. Stated he feels like he hasn't slept at all all night. Pneumatics on. cooperative with cares Follow up:
--- NOTE | 2016-07-08 14:14 | NUR ---
D: TR progress note for 07/08/16. I: Pt seen for 2 units at 1230 for cognitive task, fine motor skills, sequencing, coping strategies and functional transfers. R: Pt seen for functional skills building working on sequencing, attention to task, cognition task, motor skills, and coordination using playing cards to promote recovery and independence with all task. Pt transferred sit > stand from recliner SBA, ambulated 6 feet to with walker CGA and transferred into SBA with good recall on hand placement. Pt completed card game 'King Hiral richey' with min cues at start of session for game's strategy along with visual cue aide for rules but by end was SBA > mod I with good attention to task. Pt demonstrated fair motor skills utilizing BUE with and good sequencing. Education continued on utilization of leisure to promote recovery and for coping with pain/stress. P: Will continue to see to address goals and plan of care.
--- NOTE | 2016-07-08 17:15 | NUR ---
Significant Event:PATIENT ALERT AND ORIENTED THIS SHIFT. VSS. TRANSFERS WITH 1 ASSIST, GAIT BELT AND WALKER. HAS DENIED PAIN OTHER THAN THE DULL FRONTAL HEADACHE HE ALWAYS HAS. DENIED NEED FOR PAIN MEDS. RESTS IN RECLINER WHEN NOT IN THERAPIES. VOIDS WITHOUT DIFFICULTY SINCE HAVING THE SZYMANSKI REMOVED A COUPLE DAYS AGO. IS EXCITED ABOUT GOING HOME NEXT WEEK. NO OTHER COMPLAINTS. Follow up:
--- NOTE | 2016-07-09 02:40 | NUR ---
Significant Event: Patient is alert and oriented. Can be obsessive about things. Up one assist with GB/Walker. Prakash has been removed and is voiding w/o difficulty. Continues to have loose stools but wants to drink alot of prune juice. Has some c/o of a frontal headache takes scheduled Tylenol for this. Was unable to relax last night to sleep was obsessing about a women friend he has. Was given Haldol 1 mg at 11:50. Slept some after that. Follow up:
--- NOTE | 2016-07-09 15:39 | NUR ---
Significant Event: pt alert and oriented this shift. Pt is 1 assist with wheeled walker tolerates activity. Pt has complained of headache this shift, pt reports pain at 3/10. Pt has been given PRN medication when requested. Pt has made inappropriate comments to staff about his girlfriend, and A Matrinez PA made aware. Pt stated that he felt depressed after learning that his brother and tdeyvx-pe-zah were planning to divorce and felt like he had to play "Dr Montilla." Pt uses call light appropriately. Follow up:
--- NOTE | 2016-07-10 02:34 | NUR ---
Significant Event: Patient is alert and oriented but can be very obsessive in thoughts and conversations. Has also been inappropriate at times. VSS. Up one assist with GB/Walker. Prakash has been removed and is voiding in frequent small amts. Patient has beem having loose stools but gets alot of prune juice on his trays. We may need to ask them not to send so much up with his trays. Patient did get some bad news yesterday about his brother and was very depressed about it and could not stop thinking about it, requested a Haldol. Follow up:
--- NOTE | 2016-07-10 12:05 | NUR ---
D: TR progress note for 07/10/16. I: Pt seen for 4 units at 1030 for community integration skills building, functional transfers, and safety awareness. R: Pt seen for functional skills building working on mobility, safety, endurance and functional transfers in anticipation for discharge back into community. Pt transferred sit > stand from CGA, ambulated to/from bathroom with walker 6 feet SBA > CGA, transferred on/off toilet SBA and back to . Pt was mod I for clothing management and hygiene from . Pt given visual demonstration instructions on proper technique for car transfers prior to pt completing them. Pt transferred sit > stand from SBA, ambulated with walker 5 feet to/from vehicle SBA and transferred in/out of vehicle SBA with verbal cues for hand placement. Pt was SBA for BLE management and positioning of self with seat surface adapted using trash bag to ease task. Pt tolerated ride with no C/o pain, discomfort or problems with nausea and independent for bilateral scanning. P: Will continue to see to address goals and plan of care.
--- NOTE | 2016-07-10 14:16 | NUR ---
Significant Event: Pt up in room with walker, 1 assist, sl. unsteady, darleen. fair. Continues to have frontal headach. Scheduled tylenol at 0710. Pt continues to have some innappropriate conversations in reguards to "girlfriend". Pt reported bilat feet are numb and this is not new for him. Regaining strength in left grasp. Pt cooperative with cares. Follow up: safety, activity
--- NOTE | 2016-07-11 05:09 | NUR ---
Alert and oriented, but forgetful at times. Repetative thoughts. Not being inappropriate this shift. Took Tylenol at hs for c/o frontal heachache which he reports is due to tension. Difficulty getting to sleep bc of "his worries" with family, girlfriend, and returning to apartment alone. One incont void this shift after sleeping soundly, and one mod BM. Easy one assist with gaitbelt and walker.
--- NOTE | 2016-07-11 12:12 | NUR ---
Significant Event: PATIENT UP 1 ASSIST, WALKER, GAIT BELT. AMBULATES WELL. CONTINENT OF BOWEL AND BLADDER. FEEDS SELF WELL. PILLS IN APPLESAUCE. HEADACHE THIS AM, DENIES HEADACHE NOW. CALLS APPROPRIATELY. NO INAPPROPRIATE BEHAVIOR TODAY. TOLERATES THERAPY WELL. VITALS STABLE ON ROOM AIR. HOPING TO GO HOME NEXT WEEK. Follow up:
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
--- NOTE | 2016-07-12 04:23 | NUR ---
Significant Event:Pt up with one assist/walker, using slow shuffling gait this morning. Changed bandaid x 2 to left anterior head due to small amt bloody drainage. Reapplied folded 2x2 gauze beneath bandaid at 0400. Sitting in recliner with cup of coffee by 0400. Restless last evening and unable to settle, gave Haldol at 2154, gave lavendar/bergamot aromatherapy at 0100. Pt did sleep but then when awoke he c/o wierd dreams, removed aromatherapy from room. States dull ache to frontal area of forehead, rated at 2, Had scheduled hs tylenol for pain control. 860 po in, voids x 7, moderate bm last evening. Follow up:Monitor drainage from left anterior head. Discharge Tues.
--- NOTE | 2016-07-12 14:49 | NUR ---
Significant Event: PATIENT UP 1 ASSIST, WALKER, GAIT BELT. ALERT AND ORIENTED X3 BUT FORGETFUL. MANY BATHROOM TRIPS, VERY BORED TODAY. WANTING TO MAKE POPCORN LIKE HE DID IN OT YESTERDAY. RESTLESS ALL DAY. VITALS STABLE ON ROOM AIR. CONTINENT OF BOWEL AND BLADDER. BANDAID TO SCALP WHERE AN INCISION SITE HAS A SCAB THAT HE SCRATCHED. TYLENOL SCHEDULED BID FOR HEADACHE. HOME THURSDAY. Follow up:
--- NOTE | 2016-07-13 03:52 | NUR ---
Patient alert and oriented, but can be forgetful. Transfers 1A gb/walker. Haldol given with HS meds due to restlessness, aromatherapy placed as well. Woke up to go to restroom X2 and wanted a snack at 2300. Was sleeping well after and woke up and was upset about water pitcher not being filled. Has used urinal at bedside. Bandaid and gauze to scalp.
--- NOTE | 2016-07-13 14:25 | NUR ---
Significant Event: PATIENT UP 1 ASSIST, WALKER, GAIT BELT. ALERT AND ORIENTED X3. CALLS APPROPRIATELY BUT IS FORGETFUL AT TIMES. COOPERATIVE WITH CARES. SCRATCHED A SCAB OFF OF HIS HEAD ON THE LEFT SIDE WHERE HE HAS AN INCISION, SITE WEAPS AT TIMES SO HE INSISTS ON HAVING BANDAID AND GAUZE APPLIED. VITALS STABLE ON ROOM AIR. CONTINENT OF BOWEL AND BLADDER. [place]CO FOR PAIN PRN. HOME ON THURSDAY. Follow up:
--- NOTE | 2016-07-14 03:00 | NUR ---
Significant Event: Patient is alert and orient can be repetative with his thoughts and conversations at times. Up one assist with GB/Walker, is slightly unsteady. Uses call light appropriatly. Lyndon holes to bilateral sides of his head. All healing but he has one on the left side that the scab came off and is draininging. Patient requests the area to be covered. Is continent of bowel and bladder most of the time. Has c/o of a frontal headache at times, has Tylenol or [place] for this. Patient reports discharge on Thursday. Follow up:
[2016-07-14 06:13] LABS: ALBUMIN 3.4 gm/dL (3.5-5.0); ALK PHOS 104 IU/L (33-138); ALT 18 IU/L (12-78); ANION GAP 11.2 (10.0-19.0); AST 24 IU/L (10-40); BLOOD UREA NITROGEN 13 mg/dL (6-24); CALCIUM 8.5 mg/dL (8.5-10.5); CHLORIDE 104 mMol/L (96-110); CO2 29 mMol/L (22-32); CREATININE 0.8 mg/dL (0.6-1.3); ESTIMATED GFR (MDRD EQUATION) > 60; POTASSIUM 4.2 mMol/L (3.7-5.1); SODIUM 140 mMol/L (135-145); TOTAL BILIRUBIN 0.4 mg/dL (0.0-1.5); TOTAL PROTEIN 6.1 g/dL (6.0-8.4)
[2016-07-14] MEDS ORDERED: CELEBREX200 MG PO (12:26)
[2016-07-14] MEDS ORDERED: TYLENOL EXTRA500 MG PO (12:26)
[2016-07-14] MEDS ORDERED: CELEXA20 MG PO (12:27)
[2016-07-14] MEDS ORDERED: KEPPRA500 MG PO (12:28)
[2016-07-14] MEDS ORDERED: CARDIZEM CD (T240 MG PO (12:28)
[2016-07-14] MEDS ORDERED: FLOMAX0.4 MG PO (12:29)
--- NOTE | 2016-07-14 14:03 | NUR ---
Significant Event: PT ALERT AND ORIENTED. UP IN THE ROOM WITH 1 ASSIST, USES WALKER AND GAIT BELT. PT HAS STATED THAT TODAY HE DOESNT FEEL WELL. BRITTNY HOLE TO LT SIDE OF HEAD IS OPEN AND DRAINS SMALL AMOUNT OF YELLOW DRAINAGE. BANDAIDE APPLIED. PT STATES JUST DOESNT FEEL GOO THIS AFTERNOON. DR CABA NOTIFIED AND WILL COME SEE THE PT. SCHEDULED FOR DISCHARGE TOMORROW. TAKES MEDS IN APPLESUACE. NO FEVER NOTED. SHOWER THIS AM WITH OT. Follow up:
--- NOTE | 2016-07-15 04:53 | NUR ---
Alert and oriented, but forgetful at times. Repetitive with conversations. Pt given [place] at 2142 for c/o incisional burrhole pain to lt side of head. Dr Deluna was in at 2129 and restapled site with 4 alicia. Now covered with barrier dressing. Pt having difficulty sleeping and given Haldol at 0130. Slept a few hrs, and now awake at 0430 watching TV and drinking coffee. Anxious to go home today.Takes meds whole in applesauce.
--- NOTE | 2016-07-15 10:42 | NUR ---
D: TR progress note for 07/15/16. I: Pt seen for 1 unit 1002 for community integration skills building, family education, safety awareness and discharge planning. R: Pt seen for functional skills building working on community integration skills, safety and family training in anticipation for discharge back into community with family. Pt's daughter present for session. Education and review done on energy conservation in community setting, safety when traveling long distances in vehicle, safety with inclement weather (hot/cold) and slick surfaces. Education and review done on proper technique for car transfers and reviewed community safety concerns. Pt/daughter had not questions or concerns at this time. P: Will discharge home today, 07/15/16.
--- NOTE | 2016-07-15 10:43 | NUR ---
Significant Event:PATIENT ALERT AND ORIENTED THIS SHIFT. VSS. TRANSFERS WITH MIN SBA, GAIT BELT AND WALKER. READY FOR DC TO HOME. DAUGHTER HERE AT 10 AND SAFETY REVIEWED BY TR. DC INSTRUCTIONS REVIEWED WITH PATIENT AND DAUGHTER. VERBALIZED UNDERSTANDING AND COPY OF INSTRUCTIONS AND PRESCRIPTIONS GIVEN TO DAUGHTER. DENIED NEEDS OR COMPLAINTS. DC TO HOME VIA WHEELCHAIR AT 1035 WITH ALL BELONGINGS. Follow up:
--- NOTE | 2016-07-16 11:08 | NUR ---
D: Speech Pathologist Assistant Discharge Note for 07/15/16 I: Input from Patient/Family R: Patient to discharge On: 07/15/16 With: daughter Mary Disposition: home with HHC. Resource Discussed: Discussed HHC vs. outpatient therapy. Patient and family felt HHC would be best for now. Therapy Recommendation: see therapy notes. Equipment Recommendations: see therapy notes. Financial Resources Used: patient has Medicare and [place]. Other referrals: Referral to [facility] in [place], [place]. Patient/Family education completed: prior to d/c Patient/Family preference: in agreement Plan of Care and Goal summary: Patient met all CM d/c goals. P: Complete follow up within one week: Call patient next week to see how he is doing post discharge.
== END 2016-07-15 10:35 | disposition home health service (06) | DRG 949 ==
LOC: GIRP 09:38
PROVIDERS: Family Medicine; ADMIT Physical Medicine & Rehabilitation
PROC: F06Z6ZZ Communicative/Cognitive Integration Skills Treatment (ICD-10-PCS; principal; 2016-06-22)
PROC: F08Z4ZZ Home Management Treatment (ICD-10-PCS; principal; 2016-06-22)
PROC: F07Z9ZZ Gait Training/Functional Ambulation Treatment (ICD-10-PCS; principal; 2016-06-22)
DX: Z48.811 Encounter for surgical aftercare following surgery on the nervous system (principal); I69.354 Hemiplegia and hemiparesis following cerebral infarction affecting left non-dominant side; F03.90 Unspecified dementia, unspecified severity, without behavioral disturbance, psychotic disturbance, mood disturbance, and anxiety; I69.20 Unspecified sequelae of other nontraumatic intracranial hemorrhage; I48.0 Paroxysmal atrial fibrillation; I10 Essential (primary) hypertension; Z85.850 Personal history of malignant neoplasm of thyroid; Z86.73 Personal history of transient ischemic attack (TIA), and cerebral infarction without residual deficits; F32.9 Major depressive disorder, single episode, unspecified; Z79.82 Long term (current) use of aspirin; N40.1 Benign prostatic hyperplasia with lower urinary tract symptoms; R33.8 Other retention of urine; M19.042 Primary osteoarthritis, left hand; M19.041 Primary osteoarthritis, right hand; E89.0 Postprocedural hypothyroidism

== ENCOUNTER → 2016-07-30 | Outpatient (CLI) | payer MEDICARE, OTHER ==
[~2016-07-30] MED LIST changes: +CARDIZEM CD (T240 MG PO; +CELEBREX200 MG PO; +CELEXA20 MG PO; +FLOMAX0.4 MG PO; +KEPPRA500 MG PO; +TYLENOL EXTRA500 MG PO
== END | disposition disaster alternative care site (69) ==
LOC: GRAD 10:08
DX: Z48.89 Encounter for other specified surgical aftercare (principal); I62.00 Nontraumatic subdural hemorrhage, unspecified; Z98.890 Other specified postprocedural states

== ENCOUNTER → 2016-08-27 | Outpatient (CLI) | payer MEDICARE, OTHER | END | disposition disaster alternative care site (69) | LOC: GRAD 08:38 | DX: Z09 Encounter for follow-up examination after completed treatment for conditions other than malignant neoplasm (principal); I62.00 Nontraumatic subdural hemorrhage, unspecified; Z98.890 Other specified postprocedural states ==